=== PATIENT | female | born 1995 | race Two or more races ===

== ENCOUNTER 2024-11-02 15:50 | Emergency (ER) | payer BC, OTHER ==
[~2024-11-02] VITALS: Ht 162.6 cm; Wt 72.6 kg
[~2024-11-02 15:50] MED LIST: ALPR0.25; SERT20OR
[2024-11-02 16:16] VITALS: BP 119/93; TEMP 98.6; O2SAT 95
== END 2024-11-02 16:18 ==
LOC: ER 15:57
DX: Z02.89 Encounter for other administrative examinations (principal); F32.A Depression, unspecified; F41.9 Anxiety disorder, unspecified